=== PATIENT | female | born 1980 | race Caucasian/White ===

== ENCOUNTER 2020-01-09 06:55 | Emergency (ER) | payer OTHER ==
[~2020-01-09] VITALS: Ht 177.8 cm; Wt 99.8 kg
[2020-01-09 07:39] LABS: URINE BILIRUBIN NEGATIVE (Negative); URINE BLOOD TRACE (Negative); URINE CLARITY CLEAR; URINE COLOR YELLOW; URINE GLUCOSE-RANDOM NEGATIVE (Negative); URINE KETONES NEGATIVE (Negative); URINE LEUKOCYTES-REFLEX NEGATIVE (Negative); URINE NITRITE-REFLEX NEGATIVE (Negative); URINE PROTEIN NEGATIVE (Negative); URINE UROBILINOGEN 0.2 E.U./dl (0.2-1.0)
[2020-01-09 07:47] LABS: ABSOLUTE BASOPHILS 0.1 thou/uL (0.0-0.2); ABSOLUTE EOSINOPHILS 0.3 thou/uL (0.0-0.7); ABSOLUTE LYMPHOCYTES 2.5 thou/uL (0.8-5.3); ABSOLUTE MONOCYTES 0.5 thou/uL (0.0-1.2); ABSOLUTE NEUTROPHILS 5.1 thou/uL (1.6-8.1); BASOPHILS 0.7 %; EOSINOPHILS 3.4 %; HEMATOCRIT 45.8 % (37.0-47.0); HEMOGLOBIN 15.8 gm/dL (12.0-15.0); LYMPHOCYTES 29.9 %; MCH 30.9 pg (26.0-34.0); MCHC 34.6 g/dL (28.0-37.0); MCV 89.4 fL (80.0-100.0); MONOCYTES 5.5 %; MPV 8.7 fl. (7.2-11.1); NUCLEATED RBCS 0 /100WBC; PLATELET COUNT* 257 thou/uL (150-400); POLYS 60.5 %; RBC 5.13 mil/uL (4.20-5.00); RDW-CV 13.5 % (10.5-14.5); WBC 8.4 thou/uL (4.0-11.0)
[2020-01-09 07:54] LABS: CALCIUM 8.3 mg/dL (8.5-10.1); CREATININE 0.9 mg/dL (0.6-1.3); POTASSIUM 3.6 mmol/L (3.5-5.1)
[2020-01-09 07:59] LABS: ALBUMIN 3.4 g/dL (3.4-5.0); TOTAL BILIRUBIN 0.3 mg/dL (<0.1-1.0); TOTAL PROTEIN 6.8 g/dL (6.4-8.2)
[2020-01-09] MEDS ORDERED: NORCO 5-325 TA1 EAC2 PO (09:23)
[2020-01-09] MEDS ORDERED: CITRATE OF MAG296 M1 PO (09:23)
[2020-01-09 09:40] VITALS: BP 137/88
== END 2020-01-09 09:40 | disposition home or self-care (01) ==
LOC: M.ERS 06:55
PROVIDERS: Emergency Medicine Emergency Medical Services
DX: R10.11 Right upper quadrant pain (principal); R10.31 Right lower quadrant pain; Z88.2 Allergy status to sulfonamides